=== PATIENT | female | born 1990 | race Caucasian/White ===

== ENCOUNTER 2025-04-24 07:38 | Inpatient (IN) ==
[2025-04-24] MEDS ORDERED: OXYTOCIN 30 UNITS/NSS 30 UNITS/500 ML BAG IV PRN (07:43)
[2025-04-24] MEDS ORDERED: ACETAMINOPHEN 500 MG TAB PO PRN (07:43)
[2025-04-24] MEDS ORDERED: CALCIUM CARBONATE 500 MG CHEWABLE TAB PO PRN ×2 (07:43→23:10)
[2025-04-24] MEDS ORDERED: LIDOCAINE 1% LOCAL 20 ML VIAL INFIL PRN (07:43)
[2025-04-24 08:20] LABS: Hematocrit (blood only) 36.3 % (37.0-47.0); Hemoglobin 12.6 g/dl (12.0-16.0); Mean Corpuscular Hemoglobin 31.0 pg (25.0-34.0); Mean Corpuscular Volume 89.2 fL (80.0-100.0); Platelet Count 239 K/uL (130-400); RDW Standard Deviation 44.3 fL (36.4-46.3); Red Blood Count 4.07 M/uL (4.20-5.40); White Blood Count 9.36 K/ul (4.8-10.8)
[2025-04-24] MEDS: LACTATED RINGER'S 1,000 ML IV PRN (08:55)
[2025-04-24] MEDS: LABETALOL HCL 100 MG TAB PO SCH (08:58)
[2025-04-24] MEDS: miSOPROStoL 50 MCG TAB SL ONE (09:47)
[2025-04-24] MEDS ORDERED: LABETALOL HCL IV 5 MG/ML 20ML IV STA (12:53)
[2025-04-24 13:14] LABS: Alanine Aminotransferase 15.0 U/L (7-52); Creatinine Clr Calc Pharmacy 171.1 ml/min
[2025-04-24] MEDS: MAG SULFATE 4GM BOLUS FROM BAG IV ONE (13:17)
[2025-04-24] MEDS: MAGNESIUM SULFATE / WTR 40 GM/1,000 ML BAG IV SCH (13:17)
[2025-04-24] MEDS: BUTORPHANOL TARTRATE 1 MG/ML VIAL IV ONE (13:43)
--- NOTE | 2025-04-24 14:17 | History & Physical Report ---
Date of Service April 24, 2025 Assessment & Plan (1) Type 2 diabetes mellitus affecting , antepartum: Plan: Nicole is a 34-year-old G1, P0 currently at 38 weeks 1 day gestational age presents for induction of labor with complicated by chronic hyper tension type 2 diabetes and BMI greater than 40. 1. Fetus: Category 1 tracing 2. Labor: Unfavorable cervix -cervical ripening Blandon placed and will dose 50 mcg of Cytotec sublingual. 3. GBS negative 4. Chronic hypertension: Blood pressures mild range on admission will continue home blood pressure medications. Patient asymptomatic for preeclampsia at present 5. Type II diabetic will continue with 1 hour glucose readings if stable will increase interval of monitoring. Will arrange for insulin as indicated (2) Chronic hypertension affecting : (3) Obesity affecting , antepartum: (4) Encounter for induction of labor: (5) Unfavorable cervix in term : Admission and Anticipated Discharge Date Admission Date: April 24, 2025 History of Present Illness Primary Care Provider: Dahiana Marvin DO Nicole is a 34-year-old G1, P0 currently at 38 weeks 1 day gestational age presents for induction of labor secondary to chronic hypertension.. CHTN--On Labetalol *Baby ASA daily start 12-28 wks, continue until delivery *Wkly NST's @ 32wks and twice wkly @ 36 wks *Serial Growth US @ 24 (doppler only if abnml) *Baseline 24hr urine (additioinal PRN) *Weekly MARU's @ 32wk(If on Meds) *Deliver [id number] (If on Meds)------IOL 04/24 *Deliver [id number] (Not on Meds) Obesity BMI 44 (BMI 40 and higher @ beginning of ) *Growth US @ 32wks *Weekly NSTs @ 34wks *BMI 40 or greater offer detailed/level II anatomy at [facility]--> Normal Anatomy *BMI 40 or above offer delivery by [facility]. DM Protocol *Baby ASA daily, start 12-28wks, continue until del *Ophthalmology consult - completed 11/01 *Dietary consult - completed 11/02 *Q monthly urine cultures, collected 11/02 * [id number] 01/03/25--normal akh *Twice weekly NST's @32wks *Serial Growth US starting 28wks *Baseline 24hr Urine and Q trimester - 11/30 given supplies *EKG (Cardio [id number]) - 11/30 *Deliver by [facility] OB Labs: Blood Type B Positive 04/24/25 Antibody Screen NEGATIVE 04/24/25 Hgb 12.6 g/dl (12.0-16.0) 04/24/25 Hct 36.3 % (37.0-47.0) L 04/24/25 MCV 89.2 fL (80.0-100.0) 04/24/25 Plt Count 239 K/uL (130-400) 04/24/25 Rubella IgG Antibody Immune (Immune) 10/05/24 Treponema pallidum Ab Negative (Negative) 04/24/25 Hep Bs Antigen Negative (Negative) 10/05/24 Hepatitis C Antibody Negative (Negative) 10/05/24 HIV 1&2 Ab/P24 Ag 4thGn Negative (Negative) 10/05/24 OB Optional Labs: Chlamydia trachomatis RNA Not Detected (NotDetected) 10/05/24 Neisseria gonorrhoeae RNA Not Detected (NotDetected) 10/05/24 Thyroid Stimulating Hormone (TSH) 1.048 uIu/ml (0.300-4.500) 11/04/24 Allergies Allergy/AdvReac Type Severity Reaction Status Date / Time hydrocodone [From Vicodin] Allergy Intermediate Rash Verified 04/24/25 08:08 Home Medications Medication Instructions Recorded Confirmed Type Lactobacillus combo no.23 14 cell PO 09/29/24 04/23/25 History billion cell capsule (Nirmal Probiotic) [id number] 1 tab PO DAILY 09/29/24 04/24/25 History [ Plus] vitamin B complex 1 tab PO DAILY 09/29/24 04/24/25 History acetone (urine) test (Ketone Urine #50 ea 11/03/24 04/23/25 Rx Test strips) pen needle, diabetic 32 gauge x #100 ea 11/10/24 04/23/25 Rx " aspirin 81 mg tablet,delayed 81 mg PO DAILY 03/12/25 04/24/25 History release (Adult Low Dose Aspirin) blood sugar diagnostic (Accu-Chek #150 ea 03/13/25 04/23/25 Rx Guide test strips) blood-glucose meter (Accu-Chek #1 ea 03/13/25 04/23/25 Rx Guide Glucose Meter) lancets (Accu-Chek Softclix #200 ea 03/13/25 04/23/25 Rx Lancets) labetalol 100 mg tablet 100 mg PO BID #60 tabs 04/03/25 04/24/25 Rx insulin NPH isoph U-100 human 100 30 unit subcut .QHS 04/24/25 04/24/25 History unit/mL (3 mL) subcutaneous pen (Humulin N NPH U-100 Insulin KwikPen) Patient History Medical History (Updated 04/24/25 @ 14:14 by Toney Campoverde MD) Chicken pox Surgical History S/P wisdom tooth extraction S/P correction of deviated nasal septum S/P excision of ganglion cyst S/P carpal tunnel release Family History Father Diabetes Agenesis of internal carotid artery Grandmother (Paternal) Diabetes Grandfather (Paternal) Diabetes Brother Cleft lip Denies family history of Ovarian cancer Breast cancer Colorectal cancer Social History Smoking Status: Never smoker Do You Dip or Chew Tobacco: No; Hx Alcohol Use: No Hx Substance Use: No Preferred Language: Japanese Communication Ability: Effective Management Accountant Required: No marital status: marital status details: Guillermo Frias (43) / Current Living Situation: Spouse Current Living Situation Comment: Lives with and 2 cats- changing litter current occupational status: employed current occupation: [employer] Other Information That Helps Us Care for You: No Feels Safe at Home: Yes Safety Concerns: Feels Safe At This Time Assistive Devices: None Physical Exam Genitourinary: normal external appearance Manual OB Exam: + cervical dilation fingertip, + cervical effacement 20% and + station high OB Exam Monitor Tracing: + external FHT monitor used, + external uterine monitor used, + category I and + normal FHT variability Cervical Blandon placed after verbally consented Results & Data Vital Signs (Past 12 Hours) Vital Signs Temp Pulse Resp BP 04/24/25 14:07 59 L 147/65 H 04/24/25 14:00 20 04/24/25 14:00 20 04/24/25 13:52 64 148/73 H 04/24/25 13:42 53 L 148/75 H 04/24/25 13:32 37.1 C 58 L 20 144/72 H 04/24/25 13:25 18 04/24/25 13:25 18 04/24/25 13:24 58 L 145/67 H 04/24/25 13:11 60 171/79 H 04/24/25 12:47 58 L 173/84 H 04/24/25 12:27 54 L 173/92 H 04/24/25 12:07 56 L 157/76 H 04/24/25 11:49 58 L 157/81 H 04/24/25 11:47 55 L 197/95 H 04/24/25 11:22 37.2 C 54 L 20 176/93 H 04/24/25 10:19 60 158/90 H 04/24/25 08:56 57 L 172/91 H 04/24/25 07:53 37.2 C 102 H 20 142/100 H Coding Level of Care Code None Diagnoses Type 2 diabetes mellitus affecting , antepartum O24.119 Chronic hypertension affecting O10.919 Obesity affecting , antepartum O99.210 Encounter for induction of labor Z34.90 Unfavorable cervix in term O34.40 CPT Codes Misx Procedure Codes - 59411 Placement of cervical dilator: 00896 Placement of cervical dilator ([id number])
--- NOTE | 2025-04-24 14:19 | Labor Progress Brief Note ---
Date of Service April 24, 2025 Subjective Presented to bedside to discuss persistent severe range blood pressures. Patient has denying any preeclampsia symptoms at present. Discussed recommendation to start magnesium due to severe range blood pressures with diagnosis of chronic hypertension with superimposed preeclampsia with severe features. Discussed magnesium dosing and expectations related to the medication. Discussed treatment of blood pressures. All questions answered. Cervical Blandon still in place and will be 4 hours out from Cytotec dosing around 2 PM Assessment & Plan (1) Type 2 diabetes mellitus affecting , antepartum: Plan: Nicole is a 34-year-old G1, P0 currently at 38 weeks 1 day gestational age presents for induction of labor with complicated by chronic hypertension type 2 diabetes and BMI greater than 40. 1. Fetus: Category 1 tracing 2. Labor: Unfavorable cervix -cervical ripening Blandon placed and will dose 50 mcg of Cytotec sublingual. 3. GBS negative 4. Chronic hypertension: Blood pressures mild range on admission will continue home blood pressure medications. Patient asymptomatic for preeclampsia at present 5. Type II diabetic will continue with 1 hour glucose readings if stable will increase interval of monitoring. Will arrange for insulin as indicated (2) Chronic hypertension affecting : (3) Obesity affecting , antepartum: (4) Encounter for induction of labor: (5) Unfavorable cervix in term : Admission and Anticipated Discharge Date Admission Date: April 24, 2025 Results & Data Vital Signs (Past 12 Hours) Vital Signs Temp Pulse Resp BP 04/24/25 14:07 59 L 147/65 H 04/24/25 14:00 20 04/24/25 14:00 20 04/24/25 13:52 64 148/73 H 04/24/25 13:42 53 L 148/75 H 04/24/25 13:32 37.1 C 58 L 20 144/72 H 04/24/25 13:25 18 04/24/25 13:25 18 04/24/25 13:24 58 L 145/67 H 04/24/25 13:11 60 171/79 H 04/24/25 12:47 58 L 173/84 H 04/24/25 12:27 54 L 173/92 H 04/24/25 12:07 56 L 157/76 H 04/24/25 11:49 58 L 157/81 H 04/24/25 11:47 55 L 197/95 H 10/07/25 11:22 37.2 C 54 L 20 176/93 H 04/24/25 10:19 60 158/90 H 04/24/25 08:56 57 L 172/91 H 04/24/25 07:53 37.2 C 102 H 20 142/100 H Coding Level of Care Code None Diagnoses Type 2 diabetes mellitus affecting , antepartum O24.119 Chronic hypertension affecting O10.919 Obesity affecting , antepartum O99.210 Encounter for induction of labor Z34.90 Unfavorable cervix in term O34.40
[2025-04-24] MEDS: OXYTOCIN 30 UNITS/NSS 30 UNITS/500 ML BAG IV PRN (15:56)
[2025-04-24] MEDS: NIFEdipine 10 MG CAP PO STA (18:18)
[2025-04-24] MEDS ORDERED: ROPIVACAINE 0.5% PF 5 MG/ML 20 ML VIAL EPI PRN (19:51)
[2025-04-24] MEDS ORDERED: NALOXONE HCL 1 MG in SODIUM CHLORIDE 0.9% 1,000 ML IV PRN ×2 (19:51→23:20)
[2025-04-24] MEDS ORDERED: SODIUM CHLORIDE 0.9% PF INJ 10 ML VIAL EPI PRN (19:51)
[2025-04-24] MEDS ORDERED: diphenhydrAMINE 50 MG/ML VIAL IV PRN ×2 (19:51→23:20)
[2025-04-24] MEDS ORDERED: NALOXONE HCL 0.4 MG/1 ML VIAL/CARP IV PRN ×2 (19:51→23:20)
[2025-04-24] MEDS ORDERED: BUPIVACAINE 0.25% PF 30 ML VIAL EPI PRN (19:51)
[2025-04-24] MEDS ORDERED: LIDOCAINE 2% MPF LOCAL 5 ML VIAL EPI PRN (19:51)
[2025-04-24] MEDS ORDERED: NALBUPHINE HCL INJ 10 MG/ML AMP IV PRN (19:51)
--- NOTE | 2025-04-24 19:51 | Anesthesiology Consultation ---
Date of Service April 24, 2025 Assessment & Plan (1) Encounter for pre-operative examination: Chart Review Chart Review: Patient NOT seen in Pre Admission Testing and Acceptable Risk for Labor Epidural Consults Requested none History Height/Weight Height: 5 ft 4 in Weight: 119.665 kg Allergies Allergy/AdvReac Type Severity Reaction Status Date / Time hydrocodone [From Vicodin] Allergy Intermediate Rash Verified 04/24/25 08:08 Medications Home Medications Medication Instructions Recorded Confirmed Last Taken Lactobacillus combo no.23 14 cell PO 09/29/24 04/23/25 04/24/25 07:00 billion cell capsule (Nirmal Probiotic) vitamin B complex 1 tab PO DAILY 09/29/24 04/24/25 04/23/25 07:00 acetone (urine) test (Ketone Urine #50 ea 11/03/24 04/23/25 Unknown Test strips) pen needle, diabetic 32 gauge x #100 ea 11/10/24 04/23/25 Unknown " aspirin 81 mg tablet,delayed 81 mg PO DAILY 03/12/25 04/24/25 04/23/25 21:00 release (Adult Low Dose Aspirin) blood sugar diagnostic (Accu-Chek #150 ea 03/13/25 04/23/25 Unknown Guide test strips) blood-glucose meter (Accu-Chek #1 ea 03/13/25 04/23/25 Unknown Guide Glucose Meter) lancets (Accu-Chek Softclix #200 ea 03/13/25 04/23/25 Unknown Lancets) labetalol 100 mg tablet 100 mg PO BID #60 tabs 04/03/25 04/24/25 04/23/25 21:00 insulin NPH isoph U-100 human 100 30 unit subcut .QHS 04/24/25 04/24/25 04/23/25 23:00 unit/mL (3 mL) subcutaneous pen (Humulin N NPH U-100 Insulin KwikPen) prenat.vits,luis m,[id number] tab PO 04/24/25 04/23/25 07:00 Active Medications Generic Name Dose Route Start Last Admin Trade Name Freq PRN Reason Stop Dose Admin Lactated Ringer's 1,000 mls @ 125 mls/hr 04/24/25 07:43 04/24/25 13:14 Lr IV 04/26/25 07:42 75 mls/hr .Q8H PRN Administration L&D Protocol Protocol Oxytocin 30 units in 500 mls @ 14 mls/hr 04/24/25 07:45 04/24/25 19:00 Pitocin 30 Units/Nss IV 04/26/25 07:44 0.84 units/hr .Q24H PRN 14 mls/hr Labor Induction/Augmentation Titration Protocol 0.84 UNITS/HR Magnesium Sulfate 40 gm in 1,000 mls @ 50 mls/hr 04/24/25 13:00 04/24/25 19:01 Magnesium Sulfate / Wtr IV 05/24/25 12:59 50 mls/hr .Q20H ADDIS Infusion Past Medical History Medical History Chicken pox Past Family History Family History Father Diabetes Agenesis of internal carotid artery Grandmother (Paternal) Diabetes Grandfather (Paternal) Diabetes Brother Cleft lip Denies family history of Ovarian cancer Breast cancer Colorectal cancer Past Surgical History Surgical History S/P wisdom tooth extraction S/P correction of deviated nasal septum S/P excision of ganglion cyst S/P carpal tunnel release Social History Smoking Status: Never smoker Do You Dip or Chew Tobacco: No Hx Alcohol Use: No Hx Substance Use: No substance use type: does not use Physical Exam Vital Signs Last Vital Signs Temp 98.1 F 04/24/25 16:00 Pulse 78 04/24/25 19:49 Resp 18 04/24/25 19:00 BP 151/73 H 04/24/25 19:01 Pulse Ox 94 04/24/25 19:49 Testing Laboratory Results 04/24/25 08:00 04/24/25 08:00 Blood Type B Positive 04/24/25 08:00 Antibody Screen NEGATIVE 04/24/25 08:00 04/24/25 04/24/25 04/24/25 12:26 11:20 10:17 POC Glucose 95 100 H 109 H 04/24/25 04/24/25 09:19 08:13 POC Glucose 121 H 114 H
[2025-04-24] MEDS: LIDOCAINE 2%/EPINEPHRINE 1:200,000 20 ML PF EPI STA (20:20)
[2025-04-24] MEDS: BUPIVACAINE 0.25% PF 30 ML VIAL EPI STA (20:20)
[2025-04-24] MEDS: fentANYL 2 MCG/ML BUPIVacaine 0.125%-NSS 100ML BAG EPI PRN (20:20)
[2025-04-24] MEDS ORDERED: LIDOCAINE 2%/EPINEPHRINE 1:200,000 20 ML PF ONE (20:50)
[2025-04-24] MEDS ORDERED: ONDANSETRON INJ 2 MG/ML 2 ML VIAL ONE (20:50)
[2025-04-24] MEDS ORDERED: PROPOFOL IV EMULSION 10 MG/ML 20 ML VIAL IV ONE (20:50)
[2025-04-24] MEDS ORDERED: OXYTOCIN 10 UNITS/ML VIAL ONE (20:50)
[2025-04-24] MEDS ORDERED: SUCCINYLCHOLINE CHLORIDE 20 MG/ML 10 ML VIAL IV ONE (20:50)
[2025-04-24] MEDS ORDERED: DEXAMETHASONE SOD INJ 4 MG/ML VIAL ONE (20:50)
[2025-04-24] MEDS ORDERED: SODIUM BICARB 8.4% INJ 50 MEQ/50 ML SYR IV ONE (20:51)
--- NOTE | 2025-04-24 21:09 | Labor Progress Brief Note ---
Date of Service April 24, 2025 Subjective Presented to bedside due to prolonged deceleration followed by minimal variability with recurrent late decelerations unresponsive to resuscitation procedures. I discussed the finding of intolerance of labor and inability to augment. Discussed recommendation to proceed with a primary section and discussed risks and benefits. Consent forms reviewed and signed and all questions answered Assessment & Plan Admission and Anticipated Discharge Date Admission Date: April 24, 2025 Results & Data Vital Signs (Past 12 Hours) Vital Signs Temp Pulse Resp BP Pulse Ox 04/24/25 21:06 86 98 04/24/25 21:01 70 98 04/24/25 20:56 100 04/24/25 20:56 76 04/24/25 20:56 86 132/60 04/24/25 20:51 82 99 04/24/25 20:50 87 147/69 H 04/24/25 20:46 98 H 100 04/24/25 20:44 80 80/50 L 04/24/25 20:41 70 89/53 L 100 04/24/25 20:36 97 04/24/25 20:36 76 04/24/25 20:36 73 128/72 04/24/25 20:34 78 108/69 04/24/25 20:32 75 99/60 L 04/24/25 20:31 73 97 04/24/25 20:30 86 107/55 L 04/24/25 20:26 96 04/24/25 20:26 77 04/24/25 20:26 89 107/60 04/24/25 20:25 79 93 04/24/25 20:24 78 100/57 L 04/24/25 20:22 82 120/64 04/24/25 20:21 84 97 04/24/25 20:20 82 126/69 04/24/25 20:16 87 135/80 96 04/24/25 20:11 95 H 98 04/24/25 20:06 91 H 100 04/24/25 20:01 97 04/24/25 20:01 77 04/24/25 20:01 71 151/84 H 04/24/25 19:56 73 98 04/24/25 19:51 79 97 04/24/25 19:49 78 94 04/24/25 19:46 76 97 04/24/25 19:41 69 97 04/24/25 19:36 73 97 04/24/25 19:31 74 94 04/24/25 19:26 78 98 04/24/25 19:21 84 96 04/24/25 19:01 74 151/73 H 04/24/25 19:00 18 04/24/25 19:00 18 04/24/25 18:08 65 173/86 H 04/24/25 18:03 60 189/91 H 04/24/25 18:00 18 04/24/25 18:00 18 04/24/25 17:14 59 L 164/75 H 04/24/25 17:01 63 175/81 H 04/24/25 17:00 18 04/24/25 17:00 18 04/24/25 16:01 63 162/79 H 04/24/25 16:00 18 04/24/25 16:00 36.7 C 18 04/24/25 15:01 53 L 145/70 H 04/24/25 15:00 16 04/24/25 15:00 16 04/24/25 14:53 57 L 150/73 H 04/24/25 14:38 57 L 145/67 H 04/24/25 14:22 59 L 136/63 04/24/25 14:07 59 L 147/65 H 04/24/25 14:00 20 04/24/25 14:00 20 04/24/25 13:52 64 148/73 H 04/24/25 13:42 53 L 148/75 H 04/24/25 13:32 37.1 C 58 L 20 144/72 H 04/24/25 13:25 18 04/24/25 13:25 18 04/24/25 13:24 58 L 145/67 H 04/24/25 13:11 60 171/79 H 04/24/25 12:47 58 L 173/84 H 04/24/25 12:27 54 L 173/92 H 04/24/25 12:07 56 L 157/76 H 04/24/25 11:49 58 L 157/81 H 04/24/25 11:47 55 L 197/95 H 04/24/25 11:22 37.2 C 54 L 20 176/93 H 04/24/25 10:19 60 158/90 H Coding Level of Care Code None
[2025-04-24] MEDS: ceFAZolin 3000MG 3,000 MG/72.5 ML BAG IV SCH (22:02)
[2025-04-24] MEDS ORDERED: PHENYLEPHRINE HCL 25 MG/250 ML NSS IV ONE (22:06)
[2025-04-24] MEDS: CITRIC ACID/SODIUM CITRATE 15 ML UDC PO SCH (22:09)
[2025-04-24] MEDS ORDERED: MoRPHine SULFATE PF 1 MG/ML 10 ML AMP/VIAL ONE (22:31)
[2025-04-24] MEDS: BUPIVACAINE 0.25% PF 30 ML VIAL ONE (22:44)
[2025-04-24] MEDS: LIDOCAINE 2%/EPINEPHRINE 1:200,000 20 ML PF ONE (22:44)
[2025-04-24] MEDS: fentANYL 2 MCG/ML BUPIVacaine 0.125%-NSS 100ML BAG ONE (22:44)
[2025-04-24] MEDS: SODIUM CHLORIDE 0.9% PF INJ 10 ML VIAL ONE (22:44)
[2025-04-24] MEDS: SODIUM CHLORIDE 0.9% PF INJ 10 ML VIAL EPI STA (22:45)
[2025-04-24] MEDS: AZITHROMYCIN 500 MG/255 ML BAG IV SCH (22:45)
[2025-04-24] MEDS: LABETALOL HCL 200 MG TAB PO SCH (22:45)
[2025-04-24] MEDS ORDERED: BENZOCAINE 20% SPRY 85 APPLN/85 GM CAN EXT PRN (23:10)
[2025-04-24] MEDS ORDERED: HYDROCORTISONE ACETATE 25 MG SUPP PR PRN (23:10)
[2025-04-24] MEDS ORDERED: SENNA 8.6 MG TAB PO PRN (23:10)
[2025-04-24] MEDS ORDERED: MAGNESIUM HYDROXIDE SUSP 30 ML UDC PO PRN (23:10)
--- NOTE | 2025-04-24 23:14 | Post Operative Brief Note ---
Immediate Post Op Note Date of Surgery April 24, 2025 Pre & Post Diagnosis Operation Date: 04/24/25 22:00 Pre and postop diagnosis Early term at 38 weeks, intolerance of labor with inability to augment, type 2 diabetes, chronic hypertension, BMI greater than 40 I identified the patient and participated in the time-out.: Yes Procedure Operation Date: 04/24/25 22:00 Primary low-transverse section Surgeon Toney Campoverde MD [employer] Att[employer] Nursing staff Quantitative Blood Loss (QBL) Per QBL in chart Findings Consistent with Post-Op Diagnosis Specimens Specimen Description: 1. Placenta (Hold) 2. Cord Blood Drains Blandon Catheter (managed by anesthesia during surgery ) OB Procedure charges OB Charges 39265
[2025-04-24] MEDS ORDERED: LACTATED RINGER'S 1,000 ML IV SCH (23:15)
[2025-04-24] MEDS ORDERED: LACTATED RINGER'S 500 ML IV PRN (23:20)
[2025-04-24] MEDS ORDERED: PROMETHAZINE 6.25 MG/50.25 ML BAG IV PRN (23:20)
[2025-04-24] MEDS ORDERED: MoRPHine SULFATE PF 1 MG/ML 10 ML AMP/VIAL EPI ONE (23:20)
[2025-04-24] MEDS ORDERED: NALOXONE HCL 0.08 MG in SYRINGE 1.8 ML IV PRN (23:20)
[2025-04-24] MEDS ORDERED: ONDANSETRON INJ 2 MG/ML 2 ML VIAL IV PRN (23:20)
[2025-04-24] MEDS ORDERED: HYDROmorphone INJ 0.5 MG/0.5 ML SYR IV PRN (23:20)
--- NOTE | 2025-04-24 23:22 | Anesthesia Procedure Note ---
Date of Service April 24, 2025 Anesthesia Post Epidural Note Vital Signs Vital Signs: Temp Pulse Resp BP Pulse Ox 99.0 F 74 20 110/51 L 94 04/24/25 19:05 04/24/25 23:17 04/24/25 22:00 04/24/25 23:17 04/24/25 23:17 Notes Mental Status: alert / awake / arousable and participated in evaluation Nausea / Vomiting: adequately controlled Pain: adequately controlled Airway Patency, RR, SpO2: stable & adequate BP & HR: stable & adequate Hydration State: stable & adequate Neuraxial Anesthesia: was administered and sensory block is resolving Anesthetic Complications: no major complications apparent and Pt Satisfied with anesthetic care Epidural: Removed without complications and With tip intact
--- NOTE | 2025-04-24 23:22 | Anesthesiology Progress Note ---
Date of Service April 24, 2025 Anesthesia Post Procedure Vital Signs Vital Signs: Temp Pulse Resp BP Pulse Ox 04/24/25 23:17 74 110/51 L 94 04/24/25 23:16 72 95 04/24/25 22:11 75 135/73 04/24/25 22:09 76 98 04/24/25 22:01 73 98 04/24/25 22:00 20 04/24/25 21:56 84 99 04/24/25 21:55 83 144/72 H 04/24/25 21:51 78 100 04/24/25 21:46 82 99 04/24/25 21:42 87 142/70 H 04/24/25 21:41 81 100 04/24/25 21:36 77 99 04/24/25 21:31 86 97 04/24/25 21:27 86 129/60 04/24/25 21:26 90 99 04/24/25 21:21 98 H 98 04/24/25 21:16 84 98 04/24/25 21:11 81 99 04/24/25 21:10 86 102/57 L 04/24/25 21:06 86 98 04/24/25 21:01 70 98 04/24/25 21:00 22 04/24/25 20:56 100 04/24/25 20:56 76 04/24/25 20:56 86 132/60 04/24/25 20:51 82 99 04/24/25 20:50 87 147/69 H 04/24/25 20:46 98 H 100 04/24/25 20:44 80 80/50 L 04/24/25 20:41 70 89/53 L 100 04/24/25 20:36 97 04/24/25 20:36 76 04/24/25 20:36 73 128/72 04/24/25 20:34 78 108/69 04/24/25 20:32 75 99/60 L 04/24/25 20:31 73 97 04/24/25 20:30 86 107/55 L 04/24/25 20:26 96 04/24/25 20:26 77 04/24/25 20:26 89 107/60 04/24/25 20:25 79 93 04/24/25 20:24 78 100/57 L 04/24/25 20:22 82 120/64 04/24/25 20:21 84 97 04/24/25 20:20 82 126/69 04/24/25 20:16 87 135/80 96 04/24/25 20:11 95 H 98 04/24/25 20:06 91 H 100 04/24/25 20:01 97 04/24/25 20:01 77 04/24/25 20:01 71 151/84 H 04/24/25 20:00 20 04/24/25 19:56 73 98 04/24/25 19:51 79 97 04/24/25 19:49 78 94 04/24/25 19:46 76 97 04/24/25 19:41 69 97 04/24/25 19:36 73 97 04/24/25 19:31 74 94 04/24/25 19:26 78 98 04/24/25 19:21 84 96 04/24/25 19:05 99.0 F 20 04/24/25 19:05 18 04/24/25 19:01 74 151/73 H 04/24/25 19:00 18 04/24/25 19:00 18 04/24/25 18:08 65 173/86 H 04/24/25 18:03 60 189/91 H 04/24/25 18:00 18 04/24/25 18:00 18 04/24/25 17:14 59 L 164/75 H 04/24/25 17:01 63 175/81 H 04/24/25 17:00 18 04/24/25 17:00 18 04/24/25 16:01 63 162/79 H 04/24/25 16:00 18 04/24/25 16:00 98.1 F 18 04/24/25 15:01 53 L 145/70 H 04/24/25 15:00 16 04/24/25 15:00 16 04/24/25 14:53 57 L 150/73 H 04/24/25 14:38 57 L 145/67 H 04/24/25 14:22 59 L 136/63 04/24/25 14:07 59 L 147/65 H 04/24/25 14:00 20 04/24/25 14:00 20 04/24/25 13:52 64 148/73 H 04/24/25 13:42 53 L 148/75 H 04/24/25 13:32 98.8 F 58 L 20 144/72 H 04/24/25 13:25 18 04/24/25 13:25 18 04/24/25 13:24 58 L 145/67 H 04/24/25 13:11 60 171/79 H 04/24/25 12:47 58 L 173/84 H 04/24/25 12:27 54 L 173/92 H 04/24/25 12:07 56 L 157/76 H 04/24/25 11:49 58 L 157/81 H 04/24/25 11:47 55 L 197/95 H 04/24/25 11:22 99.0 F 54 L 20 176/93 H 04/24/25 10:19 60 158/90 H 04/24/25 08:56 57 L 172/91 H 04/24/25 07:53 99.0 F 102 H 20 142/100 H Transfer of Care Handoff Completed per policy Notes Mental Status: alert / awake / arousable and participated in evaluation Patient Amnestic to Procedure: No Nausea / Vomiting: adequately controlled Pain: adequately controlled Airway Patency, RR, SpO2: stable & adequate BP & HR: stable & adequate Hydration State: stable & adequate Neuraxial Anesthesia: was administered and sensory block is resolving Anesthetic Complications: no major complications apparent and Pt Satisfied with anesthetic care
--- NOTE | 2025-04-24 23:23 | Operative Report ---
Post Operative Report Pre & Post Diagnosis Operation Date: 04/24/25 22:00 Early term at 38 weeks, intolerance of labor with inability to augment, type 2 diabetes, chronic hypertension, BMI greater than 40 I identified the patient and participated in the time-out.: Yes Procedure Operation Date: 04/24/25 22:00 Primary low-transverse section Surgeon Toney Campoverde MD [employer]ife [employer]utter Machine Nursing staff Quantitative Blood Loss (QBL) Per QBL in chart Findings Consistent with Post-Op Diagnosis Specimens Placenta Description of Procedure Patient was taken to the operating room after consents were ensured. Upon presentation she was identified. Anesthesia obtained and patient was prepped and draped in the normal sterile fashion. Preprocedure timeout was performed and the case was initiated. A Pfannenstiel incision was made with a knife. This was carried down to underlying fascia with the Bovie and blunt dissection. Fascia was nicked at the midline with a knife and was extended bluntly bilaterally. Abdomen was then entered bluntly and placed on stretch to provide adequate room for delivery. was noted to be in cephalic presentation and a low transverse uterine incision was made with a knife. The uterine cavity was then entered bluntly and placed on stretch to provide adequate room for delivery. was noted to be in cephalic position and the head delivered without difficulty. Shoulders and body quickly followed. was noted be vigorous upon delivery and the cord was doubly clamped and cut. Cord blood obtained and attention turned to deliver the placenta which delivered intact with gentle uterine massage and cord traction. Uterus was exteriorized and several passes made to remove any remaining membranes with a dry lap. Uterus was wrapped in a wet lap and the hysterotomy was reapproximated with 0 Vicryl in continuous running lock stitch. A second imbricating layer was then performed. The posterior cul-de-sac cleaned of clots and debris's. Hysterotomy was also noted to be hemostatic. Uterus returned to maternal abdomen and right left paracolic gutters cleaned of clots and debris's and hysterotomy reinspected. The muscle, fascia and subcutaneous layers were inspected and noted to be hemostatic. Fascia was reapproximated with 0 Vicryl in continuous running stitch. Subcutaneous layer reapproximated in 2 layers with 2-0 plain. Skin reapproximated 3-0 Vicryl in a subcuticular stitch. Dermabond placed on top. Needle sponge in instrument counts correct at the completion of the case. Both mother and stable in the immediate postdelivery timeframe. No complications noted and blood loss per QBL in chart. I attest to the content of the Intraoperative Record and any orders documented therein. Any exceptions are noted below. OB Procedure Charges 04855
[2025-04-24] MEDS ORDERED: NO NARCOTICS OR SEDATIVES SCH (23:30)
[2025-04-24] MEDS ORDERED: DC INTRASPINAL MORPHINE SCH (23:30)
[2025-04-24] MEDS ORDERED: SODIUM CHLORIDE 0.9% 1,000 ML IV SCH (23:30)
[2025-04-24] MEDS: ACETAMINOPHEN 325 MG TAB ONE (23:54)
[2025-04-24] MEDS: KETOROLAC 30 MG/ML VIAL IV SCH (23:55)
[2025-04-25] MEDS ORDERED: SODIUM CHLORIDE 0.9% 100 ML IV PRN (01:46)
[2025-04-25] MEDS: DIPHTHER/TETAN/PERTUS Vaccine (Tdap, Adol/Adult) 0.5mL IM ONE (01:47)
[2025-04-25] MEDS: OXYTOCIN 20 UNITS/LR 1,002 ML IV SCH (03:22)
[2025-04-25] MEDS: METHYLERGONOVINE MALEATE 0.2 MG/ML AMP ONE (03:36)
[2025-04-25] MEDS: ACETAMINOPHEN 325 MG TAB PO SCH (05:21)
[2025-04-25] MEDS: SIMETHICONE 80 MG CHEW PO SCH (05:24)
[2025-04-25] MEDS: NALBUPHINE HCL INJ 10 MG/ML AMP IV PRN (05:27)
[2025-04-25 06:30] LABS: Hematocrit (blood only) 30.4 % (37.0-47.0); Hemoglobin 10.5 g/dl (12.0-16.0); Immature Granulocytes # (auto) 0.05 K/uL (0.01-0.20); Immature Granulocytes % (auto) 0.4 %; Mean Corpuscular Hemoglobin 30.9 pg (25.0-34.0); Mean Corpuscular Volume 89.4 fL (80.0-100.0); Platelet Count 199 K/uL (130-400); RDW Standard Deviation 45.1 fL (36.4-46.3); Red Blood Count 3.40 M/uL (4.20-5.40); White Blood Count 13.16 K/ul (4.8-10.8)
--- NOTE | 2025-04-25 08:19 | Obstetrical Progress Note ---
Date of Service April 25, 2025 Assessment & Plan (1) Chronic hypertension affecting : (2) Obesity affecting , antepartum: (3) Type 2 diabetes mellitus affecting , antepartum: Plan Assessment and plan 34 yo post- day 1 s/p ] Fells well today. Vital signs stable. Continue magnesium sulfate infusion. Continue post- care Encourage ambulation and Pain controlled with ibuprofen Hgb stable Discharge home tomorrow, follow up with Dr. Campoverde in 6 weeks. Admission and Anticipated Discharge Date Admission Date: April 24, 2025 Supervising Physician Co-Signing Physician Notes Patient seen with resident and agree with the above findings and plan. Will continue mag for preeclampsia with severe features. Blood pressure have been normal range since delivery. Denying any preeclampsia symptoms at present. Will consult diabetic pharmacy for glucose management. Subjective Post- HPI 34 yo post- day 1 s/p Ambulation: not ambulating Voiding: On callahan's catheter. Passing Gas:: No Diet Tolerance:: regular diet Lochia:: Small Feeding Type:: bottle feeding Current Pain Level: Slight pelvic pain and itching, sleep disturbance yesterday night. Resting comfortably this AM in NAD. Denies HIGH, CP, SOB, N/V/D, LE pain/swelling. Physical Exam Physical Exam: Post- PE General: patient resting comfortably, NAD, non-toxic in appearance, AA&O x 4, answers questions appropriately. Skin: warm, dry, intact HEENT: NC/AT, anicteric sclera, conjunctiva without injection, moist mucus membranes. Heart: +S1/S2, regular, no m/r/g Lungs: equal air entry bilaterally, no rales/rhonchi/wheezes Abd: +BS, soft, NT/ND, uterine fundus firm at umbilicus, caesarean incision C/D/I. Ext: warm, no clubbing/cyanosis or edema, Hilaria's neg. Neuro: nonfocal, patient AA&O x 4, speech intact, no facial droop, moving all extremities on command. Results & Data Vital Signs (Past 12 Hours) Vital Signs Temp Pulse Resp BP Pulse Ox 04/25/25 08:11 68 93 04/25/25 08:06 71 97 04/25/25 08:01 77 96 04/25/25 07:56 72 97 04/25/25 07:51 80 97 04/25/25 07:46 70 92 04/25/25 07:41 79 95 04/25/25 07:36 81 96 04/25/25 07:31 75 96 04/25/25 07:30 36.9 C 18 04/25/25 07:30 18 04/25/25 07:29 73 129/62 04/25/25 07:26 83 95 04/25/25 07:21 86 96 04/25/25 07:16 78 93 04/25/25 07:11 83 96 04/25/25 07:06 90 96 04/25/25 07:01 92 H 96 04/25/25 07:00 111 H 86 L 04/25/25 06:56 77 94 04/25/25 06:51 78 94 04/25/25 06:46 91 H 95 04/25/25 06:41 85 93 04/25/25 06:36 84 96 04/25/25 06:31 88 95 04/25/25 06:29 87 120/66 04/25/25 06:26 82 96 04/25/25 06:21 96 H 95 04/25/25 06:16 91 H 95 04/25/25 06:11 73 94 04/25/25 06:06 68 94 04/25/25 06:01 68 94 04/25/25 05:56 67 92 04/25/25 05:51 66 94 04/25/25 05:46 69 92 04/25/25 05:41 74 96 04/25/25 05:36 83 96 04/25/25 05:31 71 94 04/25/25 05:29 71 131/72 04/25/25 05:26 74 95 04/25/25 05:21 73 97 04/25/25 05:16 67 92 04/25/25 05:11 82 93 04/25/25 05:06 74 94 04/25/25 05:01 76 95 04/25/25 05:00 18 04/25/25 04:56 72 94 04/25/25 04:51 79 94 04/25/25 04:46 86 97 04/25/25 04:41 77 96 04/25/25 04:36 80 96 04/25/25 04:31 73 93 04/25/25 04:29 68 130/64 04/25/25 04:26 81 95 04/25/25 04:21 86 96 04/25/25 04:16 70 94 04/25/25 04:11 69 93 04/25/25 04:06 84 96 04/25/25 04:01 94 H 97 04/25/25 04:00 18 04/25/25 03:56 69 94 04/25/25 03:51 69 95 04/25/25 03:46 83 96 04/25/25 03:41 65 92 04/25/25 03:36 70 95 04/25/25 03:31 72 95 04/25/25 03:29 66 136/67 04/25/25 03:26 72 96 04/25/25 03:21 86 97 04/25/25 03:16 76 97 04/25/25 03:15 37.3 C 15 04/25/25 03:15 15 04/25/25 03:11 80 98 04/25/25 03:06 85 97 04/25/25 03:01 86 98 04/25/25 02:56 76 96 04/25/25 02:51 75 97 04/25/25 02:46 70 96 04/25/25 02:41 80 97 04/25/25 02:36 73 96 04/25/25 02:31 68 97 04/25/25 02:29 66 133/72 04/25/25 02:26 76 97 04/25/25 02:21 65 97 04/25/25 02:16 74 98 04/25/25 02:11 66 97 04/25/25 02:06 84 97 04/25/25 02:01 88 97 04/25/25 02:00 20 04/25/25 01:56 84 97 04/25/25 01:51 78 98 04/25/25 01:46 77 97 04/25/25 01:41 81 97 04/25/25 01:36 70 97 04/25/25 01:31 73 99 04/25/25 01:26 82 99 04/25/25 01:25 76 136/58 L 04/25/25 01:23 82 87 L 04/25/25 01:21 74 95 04/25/25 01:16 71 97 04/25/25 01:15 36.7 C 16 04/25/25 01:15 69 124/65 04/25/25 01:11 73 98 04/25/25 01:06 61 97 04/25/25 01:05 70 122/61 04/25/25 01:01 62 95 04/25/25 00:56 67 94 04/25/25 00:55 66 113/59 L 04/25/25 00:51 74 97 04/25/25 00:46 68 97 04/25/25 00:45 18 04/25/25 00:45 65 117/59 L 04/25/25 00:41 69 97 04/25/25 00:36 76 96 04/25/25 00:35 74 108/56 L 04/25/25 00:31 69 95 04/25/25 00:26 69 97 04/25/25 00:25 66 110/58 L 04/25/25 00:21 72 96 04/25/25 00:16 71 97 04/25/25 00:15 37.0 C 19 04/25/25 00:15 73 106/55 L 04/25/25 00:11 75 97 04/25/25 00:06 77 96 04/25/25 00:05 15 04/25/25 00:05 68 103/56 L 04/25/25 00:01 75 97 04/24/25 23:56 99 04/24/25 23:56 80 04/24/25 23:56 76 98/54 L 04/24/25 23:55 13 04/24/25 23:51 71 98 04/24/25 23:46 71 100/50 L 98 04/24/25 23:45 15 04/24/25 23:41 71 100 04/24/25 23:36 78 100 04/24/25 23:35 14 04/24/25 23:35 73 105/53 L 04/24/25 23:31 78 99 04/24/25 23:26 15 04/24/25 23:26 70 94/51 L 97 04/24/25 23:21 76 95 04/24/25 23:17 36.7 C 20 04/24/25 23:17 74 110/51 L 94 04/24/25 23:16 72 95 04/24/25 22:11 75 135/73 04/24/25 22:09 76 98 04/24/25 22:01 73 98 04/24/25 22:00 20 04/24/25 21:56 84 99 04/24/25 21:55 83 144/72 H 04/24/25 21:51 78 100 04/24/25 21:46 82 99 04/24/25 21:42 87 142/70 H 04/24/25 21:41 81 100 04/24/25 21:36 77 99 04/24/25 21:31 86 97 04/24/25 21:27 86 129/60 04/24/25 21:26 90 99 04/24/25 21:21 98 H 98 04/24/25 21:16 84 98 04/24/25 21:11 81 99 04/24/25 21:10 86 102/57 L 04/24/25 21:06 86 98 04/24/25 21:01 70 98 04/24/25 21:00 22 04/24/25 20:56 100 04/24/25 20:56 76 04/24/25 20:56 86 132/60 04/24/25 20:51 82 99 04/24/25 20:50 87 147/69 H 04/24/25 20:46 98 H 100 04/24/25 20:44 80 80/50 L 04/24/25 20:41 70 89/53 L 100 04/24/25 20:36 97 04/24/25 20:36 76 04/24/25 20:36 73 128/72 04/24/25 20:34 78 108/69 04/24/25 20:32 75 99/60 L 04/24/25 20:31 73 97 04/24/25 20:30 86 107/55 L 04/24/25 20:26 96 04/24/25 20:26 77 04/24/25 20:26 89 107/60 04/24/25 20:25 79 93 04/24/25 20:24 78 100/57 L 04/24/25 20:22 82 120/64 04/24/25 20:21 84 97 04/24/25 20:20 82 126/69 04/24/25 20:16 87 135/80 96 Resident Activity Tracking Resident Involvement: Resident Care Provided Care Provided: Adult Hospital Medicine
[2025-04-25] MEDS: DOCUSATE SODIUM 100 MG CAP PO SCH (08:41)
[2025-04-25] MEDS: FERROUS SULFATE 325 MG TAB PO SCH (08:41)
[2025-04-25] MEDS: PRENATAL VITAMIN 1 TAB PO SCH (08:41)
[2025-04-25] MEDS ORDERED: PHARMACY GLYCEMIC MGMT CONSULT PRN (09:29)
[2025-04-25] MEDS ORDERED: CARBOHYDRATES FOR HYPOGLYCEMIA PO PRN (10:00)
[2025-04-25] MEDS ORDERED: GLUCAGON FOR INJ 1 MG VIAL SQ PRN (10:00)
[2025-04-25] MEDS ORDERED: GLUCOSE 40% GEL 15 GM TUBE PO PRN (10:00)
[2025-04-25] MEDS ORDERED: GLUCOSE 10 TAB/TUBE PO PRN (10:00)
[2025-04-25] MEDS ORDERED: DEXTROSE 50% 50 ML SYRINGE IV PRN (10:00)
[2025-04-25] MEDS: INSULIN ASPART PER UNIT CHARGE SC SCH (12:39)
--- NOTE | 2025-04-25 14:10 | Pharmacy Report ---
Pharmacy Glycemic Short Note 2 - Date of Service April 25, 2025 - Glycemic Short BSG Results (Last 24 hours): 04/24/25 04/24/25 04/25/25 16:00 21:16 12:16 POC Glucose 84 111 H 143 H OUTPATIENT ANTIDIABETIC REGIMEN: * NPH 30 units SC HS (up to 50 units HS) A1c = 6.2% ASSESSMENT: * Nicole is a 34 yo F POD #1 s/p . * She was started on NPH during her for management of gestational diabetes. * Patient maintained good glycemic control without insulin during day 1 of her hospital stay. I anticipate this will continue given the stress of has resolved. Per her most recent outpatient DM visit note, the plan is to stop NPH after patient delivers and then monitor blood glucose without pharmacotherapy until her next DM f/u. * Will order Novolog with conservative correction factor so she can be covered in the event she becomes hyperglycemia. No basal insulin. No carb coverage at this time. PLAN FOR INPATIENT GLYCEMIC CONTROL: * Basal insulin * none * Bolus insulin * NovoLog per scale ACHS or Q6hrs while NPO * Goal Range: Low 120 mg/dL - High 160 mg/dL * Correction Factor: 30 mg/dL/unit * Nutritional / Prandial insulin: none
[2025-04-25] MEDS ORDERED: diphenhydrAMINE 50 MG/ML VIAL IV PRN (17:20)
[2025-04-25] MEDS ORDERED: ONDANSETRON INJ 2 MG/ML 2 ML VIAL IV PRN (17:20)
[2025-04-25] MEDS ORDERED: PROMETHAZINE 12.5 MG/50.5 ML BAG IV PRN (17:20)
[2025-04-25] MEDS ORDERED: HYDROmorphone INJ 0.5 MG/0.5 ML SYR IV PRN (17:20)
[2025-04-25] MEDS ORDERED: diphenhydrAMINE Capsule 25 MG CAP PO PRN (17:20)
[2025-04-25] MEDS ORDERED: KETOROLAC 30 MG/ML VIAL IV PRN (23:10)
[2025-04-25] MEDS: IBUPROFEN 600 MG TAB PO SCH (23:46)
[2025-04-26 06:11] LABS: Hematocrit (blood only) 32.8 % (37.0-47.0); Hemoglobin 10.8 g/dl (12.0-16.0)
--- NOTE | 2025-04-26 07:01 | Obstetrical Progress Note ---
Date of Service April 26, 2025 Assessment & Plan (1) Chronic hypertension affecting : (2) Obesity affecting , antepartum: (3) Type 2 diabetes mellitus affecting , antepartum: Plan Assessment and plan 34 yo post- day 2 s/p ] Fells well today. Vital signs stable. Completed magnesium sulfate infusion. Continue post- care Encourage ambulation and Pain controlled with ibuprofen Hgb stable Discharge home tomorrow, follow up with Dr. Campoverde in 6 weeks. Admission and Anticipated Discharge Date Admission Date: April 24, 2025 Supervising Physician Co-Signing Physician Notes Resident Physician Supervision Note: I interviewed and examined the patient. Discussed with Dr. Collins and agree with findings and plan as documented in the note. Any exceptions or clarifications are listed here: stable, routine care. +flatus, bps ok. labs pending. ready to have more of normal day, wanting to get shower. abd soft ff 2 down nt, incision c/d/i. ext nt calves. tr edema. ppd #2 s/p c/s and mag x 24hrs for preeclampsia, severe features superimposed on chtn. doing well. routine care. rhpos, ri, breast feeding. hgb noted. Documented By: Chelsy Siu MD, FACOG Subjective Post- HPI 34 yo post- day 2 s/p Ambulation: ambulating normally Voiding: no voiding problems Passing Gas:: Yes Diet Tolerance:: regular diet Lochia:: Small Feeding Type:: bottle feeding Current Pain Level:Slight pain Resting comfortably this AM in NAD. Denies HIGH, CP, SOB, N/V/D, LE pain/swelling. Review of Systems Review of Systems: As per hpi. Physical Exam Physical Exam: Post- PE General: patient resting comfortably, NAD, non-toxic in appearance, AA&O x 4, answers questions appropriately. Skin: warm, dry, intact HEENT: NC/AT, anicteric sclera, conjunctiva without injection, moist mucus membranes. Heart: +S1/S2, regular, no m/r/g Lungs: equal air entry bilaterally, no rales/rhonchi/wheezes Abd: +BS, soft, NT/ND, uterine fundus firm at umbilicus, caesarean incision C/D/I. Ext: warm, no clubbing/cyanosis or edema, Hilaria's neg. Neuro: nonfocal, patient AA&O x 4, speech intact, no facial droop, moving all extremities on command. Results & Data Vital Signs (Past 12 Hours) Vital Signs Temp Pulse Pulse Resp BP BP Pulse Ox 04/26/25 04:55 134/84 04/25/25 23:51 36.7 C 77 16 135/76 96 04/25/25 22:36 82 127/66 04/25/25 22:31 83 96 04/25/25 22:30 20 04/25/25 22:26 83 95 04/25/25 22:21 83 95 04/25/25 22:16 80 95 04/25/25 22:11 81 96 04/25/25 22:06 77 97 04/25/25 22:01 84 96 04/25/25 21:56 85 98 04/25/25 21:51 79 97 04/25/25 21:46 84 98 04/25/25 21:41 76 97 04/25/25 21:36 80 96 04/25/25 21:31 85 96 04/25/25 21:26 75 95 04/25/25 21:21 84 96 04/25/25 21:16 89 96 04/25/25 21:15 16 04/25/25 21:11 86 96 04/25/25 21:10 81 140/72 04/25/25 21:06 84 96 04/25/25 21:01 94 H 97 04/25/25 20:56 76 96 04/25/25 20:51 82 97 04/25/25 20:46 86 97 04/25/25 20:41 83 95 04/25/25 20:36 87 97 04/25/25 20:31 93 H 97 04/25/25 20:27 18 04/25/25 20:26 89 98 04/25/25 20:25 78 129/63 04/25/25 20:21 74 96 04/25/25 20:16 80 96 04/25/25 20:11 82 97 04/25/25 20:06 81 97 04/25/25 20:01 80 97 04/25/25 19:56 84 97 04/25/25 19:51 79 98 04/25/25 19:46 77 98 04/25/25 19:41 78 98 04/25/25 19:36 98 04/25/25 19:36 80 04/25/25 19:36 80 127/70 04/25/25 19:35 37.3 C 20 04/25/25 19:35 20 04/25/25 19:35 04/25/25 19:31 87 98 04/25/25 19:26 84 97 04/25/25 19:21 89 97 04/25/25 19:16 87 97 04/25/25 19:11 83 97 04/25/25 19:06 76 96 04/25/25 19:01 80 97 O2 Del Method 04/26/25 04:55 04/25/25 23:51 Room Air 04/25/25 22:36 04/25/25 22:31 04/25/25 22:30 04/25/25 22:26 04/25/25 22:21 04/25/25 22:16 04/25/25 22:11 04/25/25 22:06 04/25/25 22:01 04/25/25 21:56 04/25/25 21:51 04/25/25 21:46 04/25/25 21:41 04/25/25 21:36 04/25/25 21:31 04/25/25 21:26 04/25/25 21:21 04/25/25 21:16 04/25/25 21:15 04/25/25 21:11 04/25/25 21:10 04/25/25 21:06 04/25/25 21:01 04/25/25 20:56 04/25/25 20:51 04/25/25 20:46 04/25/25 20:41 04/25/25 20:36 04/25/25 20:31 04/25/25 20:27 04/25/25 20:26 04/25/25 20:25 04/25/25 20:21 04/25/25 20:16 04/25/25 20:11 04/25/25 20:06 04/25/25 20:01 04/25/25 19:56 04/25/25 19:51 04/25/25 19:46 04/25/25 19:41 04/25/25 19:36 04/25/25 19:36 04/25/25 19:36 04/25/25 19:35 04/25/25 19:35 04/25/25 19:35 Room Air 04/25/25 19:31 04/25/25 19:26 04/25/25 19:21 04/25/25 19:16 04/25/25 19:11 04/25/25 19:06 04/25/25 19:01 Resident Activity Tracking Resident Involvement: Resident Care Provided Care Provided: Adult Hospital Medicine
[2025-04-26] MEDS: NYSTATIN POWDER 15GM BTL EXT SCH (18:29)
[2025-04-26] MEDS: IBUPROFEN 600 MG TAB PO PRN (22:36)
[2025-04-27] MEDS: ACETAMINOPHEN 325 MG TAB PO PRN (04:37)
--- NOTE | 2025-04-27 07:05 | Obstetrical Progress Note ---
Date of Service April 27, 2025 Assessment & Plan (1) Chronic hypertension affecting : (2) Obesity affecting , antepartum: (3) Type 2 diabetes mellitus affecting , antepartum: Plan Assessment and plan 34 yo post- day 3 s/p ] Fells well today. Vital signs stable. Completed magnesium sulfate infusion. Continue post- care Encourage ambulation and Pain controlled with ibuprofen Hgb stable Discharge home tomorrow, follow up with Dr. Campoverde in 6 weeks. Admission and Anticipated Discharge Date Admission Date: April 24, 2025 Supervising Physician Co-Signing Physician Notes Resident Physician Supervision Note: I was present with Dr. Collins during the history and exam. I discussed the case with the resident and agree with the findings and plan as documented in the note. Any exceptions or clarifications are listed here: POD#3 doing well, desires to stay until tomorrow to continue working with . Incision CDI. Documented By: Juana Rizo, DO Subjective Post- HPI 34 yo post- day 3 s/p Ambulation: ambulating normally Voiding: no voiding problems Passing Gas:: Yes Diet Tolerance:: regular diet Lochia:: Small Feeding Type:: bottle and breast feeding Current Pain Level:Slight pain Resting comfortably this AM in NAD. Denies HIGH, CP, SOB, N/V/D, LE pain/swelling. Review of Systems Review of Systems: As per hpi. Physical Exam Physical Exam: Post- PE General: patient resting comfortably, NAD, non-toxic in appearance, AA&O x 4, answers questions appropriately. Skin: warm, dry, intact HEENT: NC/AT, anicteric sclera, conjunctiva without injection, moist mucus membranes. Heart: +S1/S2, regular, no m/r/g Lungs: equal air entry bilaterally, no rales/rhonchi/wheezes Abd: +BS, soft, NT/ND, uterine fundus firm at umbilicus, caesarean incision C/D/I. Ext: warm, no clubbing/cyanosis or edema, Hilaria's neg. Neuro: nonfocal, patient AA&O x 4, speech intact, no facial droop, moving all extremities on command. Results & Data Vital Signs (Past 12 Hours) Vital Signs Temp Pulse Resp BP Pulse Ox O2 Del Method 04/27/25 04:00 36.8 C 75 16 149/83 H 96 Room Air 04/26/25 22:00 37.3 C 90 18 142/84 H 98 Room Air 04/26/25 19:45 Room Air Resident Activity Tracking Resident Involvement: Resident Care Provided Care Provided: Adult Hospital Medicine
[2025-04-27 10:59] VITALS: RESP 18; O2SAT 97
[2025-04-27 16:14] VITALS: BP 150/85; PULSE 72; TEMP 98.8
--- NOTE | 2025-04-30 21:35 | Discharge Summary ---
Date of Service April 30, 2025 Admission HPI Per Admitting Provider Nicole is a 34-year-old G1, P0 currently at 38 weeks 1 day gestational age presents for induction of labor secondary to chronic hypertension.. CHTN--On Labetalol *Baby ASA daily start 12-28 wks, continue until delivery *Wkly NST's @ 32wks and twice wkly @ 36 wks *Serial Growth US @ 24 (doppler only if abnml) *Baseline 24hr urine (additioinal PRN) *Weekly MARU's @ 32wk(If on Meds) *Deliver [id number] (If on Meds)------IOL 04/24 *Deliver [id number] (Not on Meds) Obesity BMI 44 (BMI 40 and higher @ beginning of ) *Growth US @ 32wks *Weekly NSTs @ 34wks *BMI 40 or greater offer detailed/level II anatomy at [facility]--> Normal Anatomy *BMI 40 or above offer delivery by [facility]. DM Protocol *Baby ASA daily, start 12-28wks, continue until del *Ophthalmology consult - completed 11/01 *Dietary consult - completed 11/02 *Q monthly urine cultures, collected 11/02 * [id number] 01/03/25--normal akh *Twice weekly NST's @32wks *Serial Growth US starting 28wks *Baseline 24hr Urine and Q trimester - 11/30 given supplies *EKG (Cardio [id number]) - 11/30 *Deliver by [facility] OB Labs: Blood Type B Positive 04/24/25 Antibody Screen NEGATIVE 04/24/25 Hgb 12.6 g/dl (12.0-16.0) 04/24/25 Hct 36.3 % (37.0-47.0) L 04/24/25 MCV 89.2 fL (80.0-100.0) 04/24/25 Plt Count 239 K/uL (130-400) 04/24/25 Rubella IgG Antibody Immune (Immune) 10/05/24 Treponema pallidum Ab Negative (Negative) 04/24/25 Hep Bs Antigen Negative (Negative) 10/05/24 Hepatitis C Antibody Negative (Negative) 10/05/24 HIV 1&2 Ab/P24 Ag 4thGn Negative (Negative) 10/05/24 OB Optional Labs: Chlamydia trachomatis RNA Not Detected (NotDetected) 10/05/24 Neisseria gonorrhoeae RNA Not Detected (NotDetected) 10/05/24 Thyroid Stimulating Hormone (TSH) 1.048 uIu/ml (0.300-4.500) 11/04/24 Discharge Data Consultations 04/24/25 07:43 Consult Anesthesiology Stat Procedures Performed Operation Date: 04/24/25 22:00 <No data on this case meets the specified criteria> Hospital Course (1) delivery delivered: Plan Patient underwent a primary low-transverse section due to intolerance of labor. Procedure was performed without complication. Patient was discharged home in stable condition on post day 4. Provided both written and verbal discharge instructions prior to discharge. Plan for follow- up at 6 weeks for routine care and otherwise as needed. Coding Level of Care Code None Diagnoses delivery delivered O82
== END 2025-04-27 18:10 | disposition home or self-care (01) | DRG 788 ==
LOC: 4S1 07:38 → 4E2 04-25 23:32